=== PATIENT | female | born 1960 | race Hispanic/Latino ===

== ENCOUNTER → 2024-05-09 | Outpatient (CLI) | payer OTHER ==
--- NOTE | 2024-05-09 14:14 | HMCIMG ---
DEXA BONE DENSITY SURVEY HISTORY: Osteoporosis COMPARISON: None FINDINGS: Bone densitometry study was performed. Bone mineral density of the lumbar spine is 0.749 gram per centimeter square which corresponds to a T score of -2.7 and a Z score of -0.9. Bone mineral density of the left hip is 0.718 grams per centimeter square which corresponds to a T score of -1.8 and a Z score of -0.7. IMPRESSION: 1. Osteoporosis of the lumbar spine and osteopenia of left hip.
== END | disposition home or self-care (01) ==
LOC: RAH 13:20
PROVIDERS: ATTEND Internal Medicine
DX: M81.0 Age-related osteoporosis without current pathological fracture (principal); M85.88 Other specified disorders of bone density and structure, other site
CPT/HCPCS: 77080